=== PATIENT | male | born 1990 | race African-American/Black ===

== ENCOUNTER 2018-03-12 07:03 | Emergency (ER) | payer SELFPAY ==
[~2018-03-12] VITALS: Ht 185.4 cm; Wt 73.0 kg
[~2018-03-12 07:03] MED LIST: AMOX500T PO; IBUP-232 PO
[2018-03-12 07:07] VITALS: BP 97/58; PULSE 57; RESP 15; TEMP 98.1; O2SAT 99
[2018-03-12] MEDS ORDERED: TRAM50TA PO (07:30)
[2018-03-12] MEDS ORDERED: KETOROLAC TROMETHAMINE 60 MG/2 ML (IM) VIAL IM ONE (07:30)
[2018-03-12] MEDS ORDERED: IBUP1TAB7 PO (07:30)
[2018-03-12] MEDS ORDERED: CYCL10TA PO (07:30)
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
== END 2018-03-12 08:02 | disposition home or self-care (01) ==
LOC: NEPD 07:03
DX: S39.012A Strain of muscle, fascia and tendon of lower back, initial encounter (principal); X50.9XXA Other and unspecified overexertion or strenuous movements or postures, initial encounter
CPT/HCPCS: 96372; 99284; J1885